=== PATIENT | female | born 1970 | race Caucasian/White ===

== ENCOUNTER 2017-01-29 20:33 | Emergency (ER) | payer OTHER ==
[2017-01-29 22:04] LABS: HEMOGLOBIN 12.8 gm/dl (12.3-15.3); RED BLOOD COUNT 5.08 M/UL (4.00-5.10); WHITE BLOOD COUNT 8.8 K/UL (4.5-11.0)
[2017-01-29 22:21] LABS: BUN/CREATININE RATIO 21 (0-10)
== END 2017-01-30 02:10 | disposition home or self-care (01) ==
LOC: ER1 20:33
PROVIDERS: Emergency Medicine
DX: R10.11 Right upper quadrant pain (principal); R11.2 Nausea with vomiting, unspecified; R19.7 Diarrhea, unspecified; R68.83 Chills (without fever); Z88.0 Allergy status to penicillin; Z88.1 Allergy status to other antibiotic agents; Z88.8 Allergy status to other drugs, medicaments and biological substances
CPT/HCPCS: 36415; 80053; 81001; 84484; 84703; 85025; 96361; 96374; 99284; J2405

== ENCOUNTER → 2017-03-07 | Outpatient (CLI) | payer OTHER ==
[2017-03-07 08:05] LABS: HEMOGLOBIN 12.7 gm/dl (12.3-15.3); RED BLOOD COUNT 5.02 M/UL (4.00-5.10); WHITE BLOOD COUNT 8.6 K/UL (4.5-11.0)
[2017-03-07 08:32] LABS: BUN/CREATININE RATIO 17 (0-10)
== END ==
LOC: LAB 07:12
PROVIDERS: Internal Medicine
DX: E55.9 Vitamin D deficiency, unspecified (principal); E78.5 Hyperlipidemia, unspecified
CPT/HCPCS: 36415; 80048; 80061; 80076; 84443; 85025

== ENCOUNTER → 2021-02-11 | Outpatient (CLI) | payer OTHER ==
[~2021-02-11] MED LIST: ALBUTEROL1.25 MG/3 INH; BIOTIN2500 MCG PO; COLACE 100MG C100 MG PO; DULERA 200 MCG8.8 GM INH; GLUCOSAMINE CO1 EAC1 PO; HYDROCHLOROTHIA25 MG PO; HYDROXYZINE HCL10 MG PO; IBUPROFEN600 MG PO; K-TAB ER20 MEQ PO; LAMICTAL100 MG PO; LEXAPRO10 MG PO; MOBIC15 MG PO; MULTIVITAMINS1 EAC1 PO; NORCO 10-325 T1 EACH PO; PAROXETINE HCL40 MG PO; PREVACID30 MG PO; QUINAPRIL HCL10 MG PO; RANITIDINE HCL150 M1 PO; REXULTI PO; SINGULAIR10 MG PO; VITAMIN D32000 UNIT PO; VITAMIN D350000 UNIT PO; WELLBUTRIN XL300 MG PO
== END ==
LOC: KOH-I 15:00
DX: M25.562 Pain in left knee (principal); M17.12 Unilateral primary osteoarthritis, left knee
CPT/HCPCS: 73560